=== PATIENT | male | born 1975 | race Hispanic/Latino ===

== ENCOUNTER 2024-01-03 14:36 | Emergency (ER) | payer OTHER ==
[~2024-01-03 14:36] MED LIST: Iopamidol 300 61% 100 ML VIAL FS ONE
== END 2024-01-03 17:26 ==
LOC: EEVIPCON 14:36 → CSHERS 14:36
DX: T81.49XA Infection following a procedure, other surgical site, initial encounter (principal); L98.0 Pyogenic granuloma; I10 Essential (primary) hypertension
CPT/HCPCS: 70492; Q9967